=== PATIENT | female | born 1995 | race Caucasian/White ===

== ENCOUNTER 2016-10-20 11:54 | Emergency (ER) | payer BC ==
[~2016-10-20] VITALS: Ht 167.6 cm; Wt 120.5 kg
[2016-10-20 12:07] VITALS: BP 177/91
[2016-10-20] MEDS ORDERED: LIDOCAINE 1%, 20ML ONE (12:23)
[2016-10-20] MEDS ORDERED: LIDOCAINE 1%, 20ML SQ ONE (12:30)
[2016-10-20] MEDS ORDERED: DIPH,PERTUSS(ACELL),TET VAC/PF 0.5 ML IM-VACC ONE ×2 (12:30→12:38)
== END 2016-10-20 13:17 | disposition home or self-care (01) ==
LOC: ED 13:10
DX: S61.210A Laceration without foreign body of right index finger without damage to nail, initial encounter (principal); W25.XXXA Contact with sharp glass, initial encounter; Y93.89 Activity, other specified; Y92.89 Other specified places as the place of occurrence of the external cause; Y99.8 Other external cause status
CPT/HCPCS: 12002; 90471; 90715